=== PATIENT | female | born 1935 | race Caucasian/White ===

== ENCOUNTER 2019-06-30 09:53 | Emergency (ER) | payer OTHER ==
[~2019-06-30] VITALS: Ht 162.6 cm; Wt 72.6 kg
[2019-07-03] MEDS ORDERED: CLOPIDOGREL BIS75 MG PO (08:52)
[2019-07-03] MEDS ORDERED: LOSARTAN POTAS100 MG PO (08:52)
[2019-07-03] MEDS ORDERED: LIPITOR20 MG PO (08:52)
[2019-07-04] MEDS ORDERED: TOPROL XL50 M1 PO (08:25)
== END 2019-06-30 14:02 | disposition home or self-care (01) ==
LOC: ER 09:53
DX: M47.892 Other spondylosis, cervical region (principal); R25.2 Cramp and spasm

== ENCOUNTER 2019-07-01 16:29 | Inpatient (IN) | payer OTHER ==
[~2019-07-01] VITALS: Ht 167.6 cm; Wt 160.0 kg
[2019-07-03] MEDS ORDERED: LIPITOR20 MG PO ×2 (08:52)
[2019-07-03] MEDS ORDERED: CLOPIDOGREL BIS75 MG PO ×2 (08:52)
[2019-07-03] MEDS ORDERED: LOSARTAN POTAS100 MG PO ×2 (08:52)
[2019-07-04] MEDS ORDERED: TOPROL XL50 M1 PO ×2 (08:25)
== END 2019-07-04 11:36 | DRG 64 ==
LOC: ER 16:29 → SURG 07-02 11:15
PROVIDERS: ADMIT Internal Medicine
PROC: B246ZZZ Ultrasonography of Right and Left Heart (ICD-10-PCS; principal; 2019-07-02)
PROC: B345ZZZ Ultrasonography of Bilateral Common Carotid Arteries (ICD-10-PCS; 2019-07-02)
PROC: 4A12X4Z Monitoring of Cardiac Electrical Activity, External Approach (ICD-10-PCS; 2019-07-02)
DX: I63.81 Other cerebral infarction due to occlusion or stenosis of small artery (principal); I50.31 Acute diastolic (congestive) heart failure; G81.04 Flaccid hemiplegia affecting left nondominant side; I08.0 Rheumatic disorders of both mitral and aortic valves; I11.0 Hypertensive heart disease with heart failure; G51.0 Bell's palsy
CPT/HCPCS: 70551

== ENCOUNTER 2019-07-04 21:47 | Emergency (ER) | payer OTHER ==
[~2019-07-04] VITALS: Ht 162.6 cm; Wt 72.6 kg
[~2019-07-04 21:47] MED LIST: CLOPIDOGREL BIS75 MG PO; LIPITOR20 MG PO; LOSARTAN POTAS100 MG PO; TOPROL XL50 M1 PO
== END 2019-07-04 23:25 | disposition home or self-care (01) ==
LOC: ER 21:47
DX: I16.0 Hypertensive urgency (principal); I10 Essential (primary) hypertension

== ENCOUNTER 2019-07-26 12:38 | Outpatient (CLI) | payer OTHER | END 2019-07-26 12:40 | disposition home or self-care (01) | LOC: SONOGRAMA 12:38 | DX: M75.102 Unspecified rotator cuff tear or rupture of left shoulder, not specified as traumatic (principal) ==

== ENCOUNTER 2021-03-06 09:49 | Outpatient (CLI) | payer OTHER | END 2021-03-06 09:57 | disposition home or self-care (01) | LOC: RAD 09:49 | PROVIDERS: ATTEND Internal Medicine | DX: S99.921A Unspecified injury of right foot, initial encounter (principal); M79.676 Pain in unspecified toe(s) ==

== ENCOUNTER 2021-06-10 09:32 | Outpatient (CLI) | payer OTHER | END 2021-06-10 09:46 | disposition home or self-care (01) | LOC: RAD 09:32 | PROVIDERS: ATTEND Internal Medicine | DX: M25.532 Pain in left wrist (principal); M79.642 Pain in left hand ==

== ENCOUNTER 2021-09-02 14:21 | Outpatient (CLI) | payer OTHER | END 2021-09-02 15:00 | disposition home or self-care (01) | LOC: MRI 14:21 | DX: M54.59 Other low back pain (principal); M51.37 Other intervertebral disc degeneration, lumbosacral region | CPT/HCPCS: 72148 ==

== ENCOUNTER → 2021-09-30 | Outpatient (CLI) | payer OTHER | END | disposition home or self-care (01) | LOC: NUCLEAR 09-26 14:30 | PROVIDERS: ATTEND Internal Medicine | DX: M81.0 Age-related osteoporosis without current pathological fracture (principal); Z13.820 Encounter for screening for osteoporosis ==

== ENCOUNTER 2024-07-10 11:36 | Outpatient (CLI) | payer OTHER | END 2024-07-10 11:43 | disposition home or self-care (01) | LOC: RAD 11:36 | PROVIDERS: ATTEND Physical Medicine & Rehabilitation | DX: M54.50 Low back pain, unspecified (principal); M16.12 Unilateral primary osteoarthritis, left hip ==